=== PATIENT | female | born 1950 | race Caucasian/White ===

== ENCOUNTER 2020-07-07 21:36 | Emergency (ER) | payer OTHER, MEDICARE ==
--- NOTE | 2020-07-07 22:19 | ER Document Report ---
ED Allergic Reaction - General Chief Complaint: Insect Bite Stated Complaint: BEE STINGS Time Seen by Provider: 07/07/20 22:03 Primary Care Provider: SABINA MOYA [NO LOCAL MD] - Follow up as needed Notes: CHIEF COMPLAINT: Anaphylactic reaction to bee sting HPI: 69-year-old otherwise reasonably healthy female presenting for anaphylactic reaction to bee sting. Patient and providing information. Patient was brought by EMS. Patient was apparently stung over the head and face by 30-40 bees at around 630. states patient was "out of it" for several minutes and EMS was called. Per the EMS report patient initial blood pressure was systolic and approximately 70. Patient was given 50 mg IV Benadryl, Solu-Medrol 125 mg IV, 0.5 mg epinephrine intramuscular. Normal saline bolus. Patient's had given her 25 mg of Benadryl by mouth. Patient currently states "I just do not feel good". She denies shortness of breath chest pain difficulty swallowing. She denies voice change. Does complain of nausea but denies abdominal pain. Denies rash ROS: See HPI - all other systems were reviewed and are otherwise negative Constitutional: no fever, positive myalgia Eyes: no drainage, no blurred vision ENT: no runny nose, no sore throat Cardiovascular: no chest pain Resp: no SOB, no cough GI: no vomiting, no diarrhea, no abdominal pain, positive nausea Integumentary: no rash Allergy: no hives Musculoskeletal: no extremity pain or swelling Neurological: no numbness/tingling, no weakness MEDICATIONS: I agree with the patient medications as charted by the RN. ALLERGIES: I agree with the allergies as charted by the RN. PAST MEDICAL HISTORY/PAST SURGICAL HISTORY: Reviewed and agree as charted by RN. SOCIAL HISTORY: Reviewed and agree as charted by RN. FAMILY HISTORY: No significant familial comorbid conditions directly related to patient complaint EXAM: Reviewed vital signs as charted by RN. CONSTITUTIONAL: Alert and oriented and responds appropriately to questions. Mildly ill-appearing; well-nourished HEAD: Normocephalic; atraumatic EYES: PERRL; Conjunctivae clear, sclerae non-icteric ENT: normal nose; no rhinorrhea; moist mucous membranes; pharynx without lesions noted, no uvula edema or deviation, no tonsillar hypertrophy, phonation normal. No angioedema NECK: Supple without meningismus; non-tender; no cervical lymphadenopathy, no masses. No stridor CARD: RRR; no murmurs, no clicks, no rubs, no gallops; symmetric distal pulses RESP: Normal chest excursion without splinting or tachypnea; breath sounds clear and equal bilaterally; no wheezes, no rhonchi, no rales, pulse oximetry. 98% on room air not hypoxic ABD/GI: Normal bowel sounds; non-distended; soft, non-tender, no rebound, no guarding; no palpable organomegaly or masses. BACK: The back appears normal and is non-tender to palpation, there is no CVA tenderness EXT: Normal ROM in all joints; non-tender to palpation; no cyanosis, no effusions, no edema SKIN: Normal color for age and race; warm; dry; good turgor; multiple small sting lesions over the scalp with some surrounding localized erythema NEURO: Moves all extremities equally; Motor and sensory function intact PSYCH: The patient's mood and manner are appropriate. Grooming and personal hygiene are appropriate. MDM: 69-year-old reasonably healthy female presenting after multiple bee stings tonight. Patient was hypotensive initially was given epinephrine, IV fluids, antihistamines and steroids by EMS between 730 and 8:00 PM tonight. Still with slight nausea but no angioedema no stridor no shortness of breath pulse oximetry is normal patient's blood pressure was normotensive here. We will plan to monitor patient for several hours to evaluate for any recurrent or worsening symptoms. - Related Data Allergies/Adverse Reactions: No Known Allergies Allergy (Verified 07/07/20 22:07) Past Medical History - Social History Smoking Status: Unknown if Ever Smoked Family History: Reviewed & Not Pertinent Physical Exam - Vital signs Vitals: Pulse Ox 99 07/07/20 21:44 Course - Re-evaluation Re-evalutation: 07/07/20 23:27 Patient feels better, nausea is resolved at this time, normal sinus rhythm on the monitor, no shortness of breath. We will continue to monitor 07/07/20 23:27 EKG normal sinus rhythm with a ventricular rate of 71 AK 168 QT 420 QTc 457. Possible left atrial abnormality no other ectopy. Interpreted by emergency department physician 07/07/20 23:42 Patient's potassium was noted to be 2.7. We will give her potassium r eplacement. 07/08/20 01:07 Patient is having absolutely no symptoms at this time. She has no chest pain she has no shortness of breath she has no angioedema or stridor she is in a normal sinus rhythm on the monitor. She is not hypoxic. She has no hives or urticaria. Patient's lab work showed a moderate leukocytosis, hypokalemia with a slight bump in her troponin although it was not out of the normal range. Have low suspicion for ACS patient was initially shocky and did receive epinephrine I suspect this led to some of the lab abnormalities as well as the steroids she was given. Patient remains asymptomatic at this time she is now greater than 5 hours out from the epinephrine injection. She is receiving potassium replacement I spoke with the patient and her spouse at length about this. Case was also discussed with attending Dr. Michaud. Patient saw her PCP 2 weeks ago and had normal lab screening she will follow back up with her PCP to recheck her lab values. Patient will be discharged after potassium replacement assuming no further problems with prescriptions for steroids and antihistamines I will also prescribe an EpiPen. She is aware that if she has any recurrent or worsening symptoms she is to return to the emergency department - Vital Signs Vital signs: Temp Pulse Resp BP Pulse Ox 15 121/78 96 07/08/20 00:01 07/08/20 00:00 07/08/20 00:01 - Laboratory Result Diagrams: 07/07/20 22:59 07/07/20 22:59 Laboratory results interpreted by me: 07/07/20 07/07/20 22:59 22:59 WBC 22.5 H Hgb 16.1 H Hct 47.6 H Seg Neuts % (Manual) 80 H Lymphocytes % (Manual) 10 L Monocytes % (Manual) 2 L Abs Neuts (Manual) 18.7 H Potassium 2.7 L* BUN 21 H Est GFR (MDRD) Non-Af 54 L Glucose 202 H Discharge - Discharge Clinical Impression: Hypokalemia Bee sting-induced anaphylaxis Qualifiers: Encounter type: initial encounter Injury intent: accidental or unintentional Qualified Code(s): T63.441A - Toxic effect of venom of bees, accidental (unintentional), initial encounter Leukocytosis Qualifiers: Leukocytosis type: unspecified Qualified Code(s): D72.829 - Elevated white blood cell count, unspecified Condition: Good Disposition: HOME, SELF-CARE Instructions: Acute Allergic Reaction ([facility]) Additional Instructions: 1. take the medications as prescribed 2. take Benadryl 25-50 mg three times daily for 3-4 days 3. follow up recheck with PCP for further evaluation and treatment, call for appt. 4. return for any shortness of breath or worsening rash or condition 5. Use the Epipen if needed for any shortness of breath, difficulty swallowing or worsening condition to buy time to get to an ER or call EMS for further treatment and evaluation Prescriptions: Prednisone [Deltasone 20 mg Tablet] 2 tab PO DAILY 5 Days #10 tablet Epinephrine [Epipen 2-Jeremy] 0.3 mg IJ ONCE PRN #2 auto.injct PRN Reason: Famotidine [Pepcid 20 mg Tablet] 20 mg PO BID #12 tablet Referrals: LOCAL,NO [NO LOCAL MD] - Follow up as needed
[2020-07-07] MEDS ORDERED: ONDANSETRON HCL INJ/PF 4 MG/2 ML SDV IV ONE (22:28)
[2020-07-07 23:21] LABS: HEMATOCRIT 47.6 % (36.0-47.0); HEMOGLOBIN 16.1 g/dL (12.0-15.5); MEAN CORPUSCULAR HEMOGLOBIN 31.8 pg (27.0-33.4); MEAN CORPUSCULAR HGB CONC 33.8 g/dL (32.0-36.0); MEAN CORPUSCULAR VOLUME 94 fl (80-97); PLATELET COUNT 246 10^3/uL (150-450); RED BLOOD COUNT 5.06 10^6/uL (3.72-5.28); RED CELL DISTRIBUTION WIDTH 12.5 % (11.5-14.0); WHITE BLOOD COUNT 22.5 10^3/uL (4.0-10.5)
[2020-07-07 23:32] LABS: ALKALINE PHOSPHATASE 106 U/L (38-126); ANION GAP 15 (5-19); ASPARTATE AMINO TRANSFERASE 28 U/L (14-36); BILIRUBIN,DIRECT 0.3 mg/dL (0.0-0.4); BILIRUBIN,TOTAL 0.4 mg/dL (0.2-1.3); BLOOD UREA NITROGEN 21 mg/dL (7-20); CARBON DIOXIDE 24 mmol/L (22-30); CHLORIDE 101 mmol/L (98-107); CREATINE KINASE 62 U/L (30-135); GLUCOSE 202 mg/dL (75-110); TOTAL PROTEIN 6.9 g/dL (6.3-8.2)
[2020-07-07 23:35] LABS: POTASSIUM 2.7 mmol/L (3.6-5.0)
[2020-07-07] MEDS ORDERED: POTASSIUM CHLORIDE 10 MEQ TABLET.ER PO ONE (23:40)
[2020-07-07] MEDS ORDERED: POTASSI CL 20 MEQ/50 ML RIDER 20 MEQ/50 ML RTUPB IV ONE (23:41)
[2020-07-08 00:17] LABS: ABSOLUTE LYMPHOCYTES# (MANUAL) 3.4 10^3/uL (0.5-4.7); ABSOLUTE MONOCYTES # (MANUAL) 0.5 10^3/uL (0.1-1.4); BAND NEUTROPHILS % (MANUAL) 3 % (3-5); BASOPHILS % (MANUAL) 0 % (0-2); EOSINOPHILS % (MANUAL) 0 % (0-6); LYMPHOCYTES % (MANUAL) 10 % (13-45); MONOCYTES % (MANUAL) 2 % (3-13); PLATELET COMMENT ADEQUATE; SEGMENTED NEUTROPHILS % (MAN) 80 % (42-78); TEAR DROP CELLS SLIGHT; TOTAL CELLS COUNTED 100
[2020-07-08 02:14] VITALS: BP 135/74
--- NOTE | 2020-07-08 09:11 | EKG REPORT ---
SEVERITY:- BORDERLINE ECG - SINUS RHYTHM PROBABLE LEFT ATRIAL ABNORMALITY : Confirmed by: Trent Arias 08-Jul-2020 09:11:09
== END 2020-07-08 02:14 | disposition home or self-care (01) ==
LOC: ER 21:36
DX: T63.441A Toxic effect of venom of bees, accidental (unintentional), initial encounter (principal); T78.2XXA Anaphylactic shock, unspecified, initial encounter; Y93.89 Activity, other specified; R11.0 Nausea; D72.829 Elevated white blood cell count, unspecified; E87.6 Hypokalemia
CPT/HCPCS: 93005; 99284; 96375; 96365; 96366; 36415; 82550; 85025; 80053; 83874; 84484; 93010; J2405; J3480